=== PATIENT | male | born 1970 | race Hispanic/Latino ===

== ENCOUNTER 2023-12-16 18:19 | Emergency (ER) | payer BC ==
[~2023-12-16] VITALS: Ht 165.1 cm; Wt 68.0 kg
[2023-12-16 19:08] VITALS: BP 149/90; PULSE 89; RESP 16; O2SAT 99
== END 2023-12-16 19:08 | disposition home or self-care (01) ==
LOC: EDH 18:19
DX: S10.15XA Superficial foreign body of throat, initial encounter (principal); I10 Essential (primary) hypertension; W44.F3XA Food entering into or through a natural orifice, initial encounter; Y93.89 Activity, other specified; Y92.89 Other specified places as the place of occurrence of the external cause; Y99.8 Other external cause status
CPT/HCPCS: 42809; 99281